=== PATIENT | male | born 1955 | race Caucasian/White ===

== ENCOUNTER → 2025-03-17 13:46 | Outpatient (CLI) | payer BC, SELFPAY ==
[2025-03-17 18:54] LABS: Hematocrit 46.6 % (41-53); Hemoglobin 16.1 g/dL (13.5-17.5); Mean Corpuscular HGB Conc 34.5 % (30-36); Mean Corpuscular Hemoglobin 31.8 PG (26-34); Mean Corpuscular Volume 92.0 fL (80-100); Platelet Count 307 X10^3/uL (150-400)
[2025-03-17 19:04] LABS: Alanine Aminotransferase 32 IU/L (<50); Albumin 4.5 g/dL (3.5-5.0); Albumin Globulin Ratio 1.6 (1.0-2.8); Alkaline Phosphatase 76 U/L (38-126); Blood Urea Nitrogen 13 mg/dL (9-20); Calcium 10.0 mg/dL (8.4-10.2); Carbon Dioxide 25 mmol/L (22-32); Chloride 104 mmol/L (98-107); Cholesterol 196 mg/dL (140-199); Estimated Glomerular Filt Rate > 60 mL/min (>60); Globulin 2.8 g/dL (1.7-4.1); Glucose 98 mg/dL (70-99); HDL Cholesterol 70 mg/dL (40-60); HEMOLYSIS 23 (0-50); Potassium 4.2 mmol/L (3.4-5.1); Sodium 138 mmol/L (137-145); Total Protein 7.3 g/dL (6.3-8.2); Triglycerides 78 mg/dL (35-150)
== END ==
PROVIDERS: PCP Family Medicine; Visit Provider Family Medicine
DX: Z12.5 Encounter for screening for malignant neoplasm of prostate (principal); Z13.6 Encounter for screening for cardiovascular disorders; Z13.1 Encounter for screening for diabetes mellitus; Z13.0 Encounter for screening for diseases of the blood and blood-forming organs and certain disorders involving the immune mechanism; Z12.11 Encounter for screening for malignant neoplasm of colon
CPT/HCPCS: 80053; 80061; 85027; G0103